=== PATIENT | female | born 1970 | race Two or more races ===

== ENCOUNTER 2022-02-28 23:23 | Emergency (ER) | payer SELFPAY ==
[~2022-02-28] VITALS: Ht 167.6 cm; Wt 74.8 kg
--- NOTE | 2022-02-28 23:30 | NUR ---
[id number] FROM HOME FOR PANIC ATTACK, BS 540 PER EMS GIVEN 250CC [employer]. PATIENT IS AAOX4. [place] SPEAKING. ABLE TO MAKE NEEDS KNOWN. CAME WITH IV JOHN ON LEFT AC B20 WITH IVF RUNNING. PLACED COMFORTABLY IN BED. VITALS CHECKED.
--- NOTE | 2022-02-28 23:37 | NUR ---
BS 438mg/dl. DR ZAZUETA MADE AWARE
[2022-02-28] MEDS ORDERED: INSULIN REGULAR, HUMAN 100 UNIT/ML 10 ML VIAL ONE (23:46)
--- NOTE | 2022-02-28 23:58 | NUR ---
COVID SWAB DONE AND SENT TO LAB
[2022-03-01] MEDS ORDERED: IV NS 0.9% 1,000 ML BAG IV ONE
[2022-03-01] MEDS ORDERED: INSULIN REGULAR, HUMAN 100 UNIT/ML 10 ML VIAL IV ONE
--- NOTE | 2022-03-01 00:39 | NUR ---
URINE SPECIMEN SENT TO LAB
[2022-03-01 01:01] LABS: BASOPHILS % (AUTO) 0.3 % (0.0-2.0); HEMATOCRIT 40 % (33-45); HEMOGLOBIN 13.1 g/dL (11.5-14.8); LYMPHOCYTES # (AUTO) 2.8 K/uL (0.8-4.8); LYMPHOCYTES % (AUTO) 42.8 % (20.0-44.0); MEAN CORPUSCULAR HGB CONC 33 g/dl (31.0-36.0); MEAN CORPUSCULAR VOLUME 84 fL (82-100); MONOCYTES # (AUTO) 0.6 K/uL (0.1-1.30); MONOCYTES % (AUTO) 9.1 % (2.0-12.0); NEUTROPHILS # (AUTO) 2.9 K/uL (1.8-8.9); NEUTROPHILS % (AUTO) 45.8 % (43.0-81.0); PLATELET COUNT (AUTO) 197 K/uL (150-450); RED BLOOD CELL COUNT(AUTO) 4.79 MIL/uL (4.0-5.2); WHITE BLOOD COUNT (AUTO) 6.4 K/uL (4.3-11.0)
[2022-03-01 01:45] LABS: BILIRUBIN,URINE NEGATIVE (NEGATIVE); COLOR,URINE YELLOW (YELLOW); LEUKOCYTE ESTERASE ,URINE NEGATIVE (NEGATIVE); NITRITE, URINE NEGATIVE (NEGATIVE); PH,URINE 6.5 (5.0-8.0); PROTEIN,URINE NEGATIVE (NEGATIVE); UGLUCOSE 3+ mg/dL (NEGATIVE); UROBILINOGEN,URINE 0.2 EU/dL (0.2)
--- NOTE | 2022-03-01 01:54 | NUR ---
latest BS 228mg/dl. DR ZAZUETA MADE AWARE
[2022-03-01 01:59] LABS: CALCIUM, SERUM 8.6 mg/dL (8.5-10.1); CARBON DIOXIDE 29 mmol/L (21-32); CHLORIDE 103 mmol/L (98-107); CREATININE 0.8 mg/dL (0.6-1.3); GLUCOSE 275 mg/dL (74-106); POTASSIUM 3.9 mmol/L (3.5-5.1); SODIUM SERUM 138 mmol/L (136-145); UREA NITROGEN, BLOOD 15 mg/dL (7-18)
[2022-03-01 02:02] LABS: CLINITEST,URINE 3/4%
[2022-03-01 02:03] LABS: ALANINE AMINOTRANSFERASE 21 U/L (12-78); ALBUMIN 3.1 g/dL (3.4-5.0); ALKALINE PHOSPHATASE 109 U/L (46-116); ASPARTATE AMINOTRANSFERASE 13 U/L (15-37); BILIRUBIN,DIRECT 0.1 mg/dL (0.0-0.2); BILIRUBIN,TOTAL 0.4 mg/dL (0.2-1.0); TOTAL PROTEIN, SERUM 6.4 g/dL (6.4-8.2)
--- NOTE | 2022-03-01 03:50 | NUR ---
IV CANNULA REMOVED
--- NOTE | 2022-03-01 04:00 | NUR ---
Patient discharged to home in stable condition. Written and verbal after care instructions given. Patient verbalizes understanding of instruction.
[2022-03-01 05:01] VITALS: BP 128/84
== END 2022-03-01 05:02 | disposition home or self-care (01) ==
LOC: ER 23:25
DX: E11.65 Type 2 diabetes mellitus with hyperglycemia (principal); Z79.4 Long term (current) use of insulin; Z79.84 Long term (current) use of oral hypoglycemic drugs; R77.8 Other specified abnormalities of plasma proteins; Z20.822 Contact with and (suspected) exposure to COVID-19
CPT/HCPCS: 99285; 96374; 71045; 93005; 36415; 82962 ×2; 87426; 85025; 80048; 82010; 80076; 81003; 84484 ×2; 85730; J1815; J7030; C9803